=== PATIENT | male | born 1975 | race Caucasian/White ===

== ENCOUNTER 2023-12-11 19:22 | Emergency (ER) | payer OTHER ==
[~2023-12-11] VITALS: Ht 175.3 cm; Wt 81.6 kg
[2023-12-11] MEDS: MORPHINE 2 MG SYG IVP ONE (20:07)
[2023-12-11] MEDS ORDERED: PROPOFOL 1000 MG/100 ML 100 ML IV ONE (20:35)
[2023-12-11] MEDS ORDERED: NAPR-1196 PO (20:51)
[2023-12-11] MEDS: MIDAZOLAM HCL 5 MG/ML 2ML VIAL IV ONE ×2 (21:24→21:26)
[2023-12-11] MEDS: KETAMINE 50MG/ML SYRINGE 50 MG/ML DISP.SYRIN IV ONE (21:24)
[2023-12-11] MEDS: KETAMINE 50MG/ML SYRINGE 50 MG/ML DISP.SYRIN ONE (21:26)
[2023-12-11 22:40] VITALS: BP 128/82; PULSE 72; RESP 16; O2SAT 98
== END 2023-12-11 22:41 | disposition home or self-care (01) ==
LOC: EDH 19:22
DX: S43.004A Unspecified dislocation of right shoulder joint, initial encounter (principal); W18.39XA Other fall on same level, initial encounter; Y93.89 Activity, other specified; Y92.89 Other specified places as the place of occurrence of the external cause; Y99.8 Other external cause status
CPT/HCPCS: 99285; 23650; 96374; 73030 ×2; 99152; J2270; J2704; J2250; J3490